=== PATIENT | male | born 1980 | race Caucasian/White ===

== ENCOUNTER → 2016-05-22 | Outpatient (CLI) | payer BC ==
[~2016-05-22] MED LIST: LIDOCAINE 2% MDV 20 ML VIAL As Ordered ONE; LIDOCAINE 4% CREAM 5GM (LMX4) As Ordered ONE; LORazepam 0.5 MG TAB As Ordered ONE; SODIUM TETRADECYL SULFATE(3%)30MG/ML 2ML VIAL (SOTRADECOL) As Ordered ONE
--- NOTE | 2016-05-22 17:04 | REPKIM ---
INDICATION: Patient presented with bilateral lower extremity symptomatic painful varicose veins and complications. The left leg incompetent superficial veins were successfully treated on 03/23/16. The patient presents for EVLT/ possible sclerotherapy of the right lower extremity incompetent GSV and anterior accessory GSV and significant varicosities in the distal thigh/calf region. PROCEDURE: 1. Endovenous laser ablation therapy of the incompetent GSV on the right 2. Sclerotherapy of the incompetent anterior accessory GSV and varicosities on the right INTERVENTIONALIST: Michi Goode MD EBL: 5 mL MEDICATIONS: Ativan 1.5 mg po, Local Lidocaine and Sodium Tetradecyl Sulfate 3% diluted to 1.5% DEVICE USED: 45-CM [id number] TECHNIQUE AND FINDINGS: Informed consent was obtained prior to the procedure. The patient was placed supine on the table. A time out was performed that verified correct procedure, site, side and materials available. Patient received a total of 1.5 mg Ativan po just before the procedure due to severe anxiety. Ultrasound examination was performed and focused on the saphenofemoral junction of the right leg. This showed significant reflux involving the greater saphenous vein as previously described. This also showed significant reflux involving the anterior accessory GSV. The aa GSV straight segment measures only 6 cm in length associated with significant collateral varicosities in the mid and distal thigh. The right lower extremity was prepped and draped in the usual sterile fashion. After local anesthesia with 1mL of lidocaine 1% at the skin, the incompetent greater saphenous vein just above the knee level was accessed with a 21 gauge needle and a 0.018" wire followed by a 4 [place] sheath of the EVLT kit. The sheath was advanced over the wire to the saphenofemoral junction level and the laser fiber was advanced coaxially and its tip was positioned approximately 5 cm distal from the saphenofemoral junction. Tumescent anesthesia was given along this vein by using real-time ultrasonographic guidance and a 22 gauge spinal needle and a mixture of diluted lidocaine (12.5mL @ 2% in 237.5mL of normal saline). Endovenous laser ablation was applied along the greater saphenous vein using 6 Jeff in continuous mode for a total duration of 262 seconds. A total of 1571 Joules was delivered. Because of significant varicosities extending below the knee level off the GSV, approximately 2 mL of sclerotherapy foam (1mL sodium tetradecyl sulfate diluted at 1.5 %) mixed with air at a ratio of 1:4 injected via the sheath neat the GSV at the knee level. After local anesthesia with 1mL of lidocaine 1% at the skin, the incompetent anterior accessory greater saphenous vein at the proximal thigh level was accessed with a 21 gauge needle. I was not able to advance a guidewire centrally because of tortuosity of the aa GSV. Decision was then made to treat the incompetent aa GSV using sclerofoam. The incompetent aa GSV in the proximal thigh and mid to distal thigh significant varicosity were accessed using a butterfly, then each area injected with 2 mL of sclerotherapy foam (1mL sodium tetradecyl sulfate diluted at 1.5 %) mixed with air at a ratio of 1:4 under ultrasound guidance. Compression was maintained. SteriStrips was applied on the skin, followed by 20-30 mm Hg compression stockings. The patient was then allowed to stand and instructed to walk for 15 minutes. He was then discharged back home in good and stable condition with no immediate complication. This procedure was performed with ultrasound guidance. Dr. Goode was present. IMPRESSION: Successful treatment of symptomatic incompetent GSV in the right lower extremity by endovenous laser ablation. Significant incompetent anterior accessory GSV and collateral varicosities in the right lower extremity treated with sclerotherapy as discussed above. PLAN: Pt was given post-procedure instructions, including contact information for a follow-up duplex ultrasound of the right lower extremity to rule out DVT and post EVLT/sclerotherapy evaluation in next several days. cc: MD RHONDA Joseph
== END | disposition home or self-care (01) ==
LOC: M IRPRO 07:59
DX: I83.811 Varicose veins of right lower extremity with pain (principal); I83.891 Varicose veins of right lower extremity with other complications
CPT/HCPCS: 36471; 36478; C1888; C1894

== ENCOUNTER → 2016-05-24 | Outpatient (CLI) | payer BC ==
--- NOTE | 2016-05-24 11:58 | REP ---
DUPLEX EXTREMITY VENOUS ULTRASOUND RIGHT LOWER EXTREMITY: HISTORY: Status post EVLT therapy, question DVT. FINDINGS: The greater saphenous vein is thrombosed and occluded as expected status post treatment and scleral therapy. Similarly, the treated anterior accessory saphenous vein is thrombosed. The common femoral, femoral vein, and popliteal vein, however, are anechoic and fully compressible on two-dimensional scanning. Color flow imaging is homogenous. Spectral Doppler interrogation demonstrates intact respiratory variation and manual augmentation of flow. IMPRESSION: There is no evidence of deep venous thrombosis, except of the treated greater saphenous and anterior accessory veins. Signed by Kirk Quispe MD 05/24/2016 03:30 P
== END ==
LOC: M RAD 08:03
DX: I83.209 Varicose veins of unspecified lower extremity with both ulcer of unspecified site and inflammation (principal)

== ENCOUNTER 2017-09-02 12:08 | Outpatient (RCR) | payer BC | END 2017-09-16 | LOC: M PT 12:08 | DX: Z51.89 Encounter for other specified aftercare (principal); M54.5 Low back pain | CPT/HCPCS: 97010 ==

== ENCOUNTER 2017-09-18 12:30 | Outpatient (RCR) | payer BC | END 2017-10-17 | LOC: M PT 12:30 | DX: Z51.89 Encounter for other specified aftercare (principal); M54.30 Sciatica, unspecified side; M54.16 Radiculopathy, lumbar region ==

== ENCOUNTER 2017-10-08 12:42 | Day surgery (SDC) | payer BC ==
[2017-10-08] MEDS ORDERED: LR 1,000 ML IV (13:00)
[2017-10-08] MEDS: CelecoXIB (CeleBREX) 100 MG CAP PO (13:30)
[2017-10-08] MEDS: PREGABALIN 75 MG CAP(LYRICA) PO ×2 (13:32→22:34)
[2017-10-08] MEDS: PERCOCET 5MG/325MG TAB PO ×2 (13:34→20:40)
[2017-10-08] MEDS ORDERED: PROPOFOL 200 MG/20 ML VIAL As Ordered (13:52)
[2017-10-08] MEDS ORDERED: ROCURONIUM BROMIDE 50 MG/5 ML VIAL As Ordered (13:52)
[2017-10-08] MEDS ORDERED: MIDAZOLAM INJ 2 MG/2 ML VIAL (J2250) As Ordered (13:52)
[2017-10-08] MEDS ORDERED: LIDOCAINE 2% INJ 100 MG/5 ML SDV (FOR ANES.) As Ordered (13:52)
[2017-10-08] MEDS ORDERED: fentaNYL 250 MCG/5 ML INJECTION (J3010) As Ordered (13:52)
[2017-10-08] MEDS ORDERED: dexameTHASONE 4 MG/ML 1ML VIAL (J1100) As Ordered ×2 (13:53)
[2017-10-08] MEDS ORDERED: ONDANSETRON 4MG/2ML VIAL (J2405) As Ordered (13:53)
[2017-10-08 14:07] LABS: BEDSIDE GLUCOSE 209 MG/DL (70-105)
[2017-10-08] MEDS ORDERED: BUPIVACAINE/EPIN 0.5% 30 ML VIAL As Ordered (14:10)
[2017-10-08] MEDS ORDERED: BUPIVACAINE LIPOSOME/PF 1.3% 20 ML VIAL (13.3MG/ML)(EXPAREL) As Ordered (14:11)
[2017-10-08] MEDS: BACITRACIN PWD 50,000 UNITS VIAL As Ordered (18:10)
[2017-10-08] MEDS: THROMBIN SOLN 20,000 UNITS KIT As Ordered (18:33)
[2017-10-08] MEDS ORDERED: ePHEDrine INJ 50 MG/ML VIAL As Ordered (19:23)
[2017-10-08] MEDS: BUPIVACAINE HCL 0.25% 10 ML VIAL As Ordered (19:47)
[2017-10-08] MEDS ORDERED: fentaNYL 100 MCG/2 ML INJECTION (J3010) As Ordered (20:10)
[2017-10-08] MEDS: fentaNYL 100 MCG/2 ML INJECTION (J3010) IV ×4 (20:20→20:35)
[2017-10-08] MEDS: LR 1,000 ML IV ×2 (21:45→23:15)
[2017-10-08] MEDS ORDERED: PERCOCET 5MG/325MG TAB PO ×2 (21:45→23:15)
[2017-10-08] MEDS ORDERED: PROMETHAZINE INJ 25 MG/ML VIAL (J2550) IV (22:00)
[2017-10-08 22:47] LABS: BEDSIDE GLUCOSE 315 MG/DL (70-105)
[2017-10-08] MEDS ORDERED: ONDANSETRON 4MG/2ML VIAL (J2405) IV (23:15)
[2017-10-08] MEDS ORDERED: HYDROMORPHONE HCL 0.5 MG/ 0.5 ML SYRINGE (J1170 PER 1) IV ×2 (23:15)
[2017-10-08] MEDS ORDERED: METOCLOPRAMIDE INJ 10MG/2ML VIAL (J2765) IV (23:15)
[2017-10-08] MEDS ORDERED: MEPERIDINE INJ 25 MG/ML VIAL (J2175) IV (23:15)
[2017-10-09] MEDS: PERCOCET 5MG/325MG TAB PO ×2 (00:52→06:34)
[2017-10-09] MEDS: LR 1,000 ML IV (01:37)
[2017-10-09] MEDS: CelecoXIB (CeleBREX) 100 MG CAP PO (08:59)
[2017-10-09] MEDS ORDERED: MOM 30ML SUSPENSION UDC PO (09:00)
== END 2017-10-09 09:05 | disposition home or self-care (01) ==
LOC: M SDC 12:42 → M PED 21:10 → M SDC 10-09 09:05
DX: M51.16 Intervertebral disc disorders with radiculopathy, lumbar region (principal); J45.909 Unspecified asthma, uncomplicated; E11.9 Type 2 diabetes mellitus without complications; F17.210 Nicotine dependence, cigarettes, uncomplicated; Z79.899 Other long term (current) drug therapy
CPT/HCPCS: 63030

== ENCOUNTER → 2021-03-31 | Outpatient (REF) ==
[~2021-03-31] MED LIST changes: +CYCL-707 PO; +HYDR-3715 PO; +IBUP80TA PO; -LIDOCAINE 2% MDV 20 ML VIAL As Ordered ONE; -LIDOCAINE 4% CREAM 5GM (LMX4) As Ordered ONE; -LORazepam 0.5 MG TAB As Ordered ONE; +METF-414 PO; +PRED20TA PO; +ROBA500T PO; -SODIUM TETRADECYL SULFATE(3%)30MG/ML 2ML VIAL (SOTRADECOL) As Ordered ONE
== END ==
LOC: M LAB 11:08
PROVIDERS: ATTEND Nurse Practitioner Adult Health
DX: Z20.822 Contact with and (suspected) exposure to COVID-19 (principal)

== ENCOUNTER → 2021-05-23 | Outpatient (REF) | payer OTHER | LOC: M LAB REF 16:33 | PROVIDERS: ATTEND Family Medicine | DX: Z11.59 Encounter for screening for other viral diseases (principal) ==